=== PATIENT | male | born 1950 | race Caucasian/White ===

== ENCOUNTER 2016-08-12 14:28 | Emergency (ER) | payer OTHER ==
[~2016-08-12] VITALS: Ht 170.2 cm; Wt 95.3 kg
--- NOTE | 2016-08-12 14:50 | NUR ---
ARRIVAL: PT AMBULATED WELL TO RM 8. NAD. COLOR PINK. PLACED ON MONITOR AND TRIAGE DONE
--- NOTE | 2016-08-12 15:21 | NUR ---
RAD PT TO CT SCAN
--- NOTE | 2016-08-12 15:27 | NUR ---
RAD PT BACK FROM PT
--- NOTE | 2016-08-12 15:38 | ER.PDOC ---
General Chief Complaint: Eye Problems Stated Complaint: UNABLE TO SEE Time seen by MD: 15:00 Source: patient Exam Limitations: no limitations History of Present Illness Initial Comments Pt states that he had peripheral vision loss on the left eye, suddenly at 2 PM Timing/Duration: 1 hour Severity: mild Impairments: Visual Problems (Left hemianopia) Usually: orientedx3 Allergies: Coded Allergies: Sulfa (Sulfonamide Antibiotics) (Verified Allergy, Unknown, rash, 08/12/16) codeine (Verified Allergy, Unknown, enhances pain, 08/12/16) Past Medical History Medical History: cardiac problems, hypertension Social History Smoking: non-smoker Alcohol Use: none Drug Use: none Review of Systems Constitutional: see HPI Eyes: see HPI Ears, Nose, Mouth, Throat: see HPI Respiratory: see HPI Cardiovascular: see HPI Gastrointestinal: see HPI Genitourinary: see HPI Musculoskeletal: see HPI Skin: see HPI Psychiatric/Neurological: see HPI Endocrine: see HPI Hematologic/Lymphatic: see HPI Physical Exam General Appearance: alert, no distress HEENT: no apparent trauma, EOM's intact, no nystagmus, PERRL, ENT inspection nml, pharynx nml, airway intact, oral exam nml Neuro/Psych: oriented x3, nml speech/cognition, nml mood/affect Cranial Nerves: nml as tested Cerebellar: nml as tested Peripheral Exam: motor nml, sensation nml, reflexes nml Neck: supple, non-tender, no carotid bruit Respiratory: no resp distress, breath sounds nml CVS: reg rate & rhythm, heart sounds nml Abdomen: non-tender, no organomegaly, no distention Skin: color nml, no rash, warm/dry Extremities: non-tender, nml ROM, no pedal edema Results/Orders Results/Orders Laboratory Tests Test 08/12/16 15:38 08/12/16 15:47 Urine Collection Type Void Urine Color Yellow (YELLOW) Urine Appearance Clear (CLEAR) Urine Bilirubin NegativeMG/DL (NEGATIVE) Urine Ketones Negative (NEGATIVE) Urine Specific [place] 1.020 (1.005-1.035) Urine pH 5 (5.0-6.0) Urine Protein Negative (NEGATIVE) Urine Urobilinogen Normal (NEGATIVE) Urine Nitrate Negative (NEGATAIVE) Urine Leukocyte Esterase Negative (NEGATIVE) Urine Blood Negative (NEGATIVE) Urine Glucose Normal (NEGATIVE) White Blood Count 9.310^3/uL (4.5-11.0) Red Blood Count 4.7910^6/uL (4.50-5.90) Hemoglobin 14.2g/dL (13.9-16.3) Hematocrit 42.2% (37.0-53.0) Mean Corpuscular Volume 88.1fL (78-100) Mean Corpuscular Hemoglobin 29.6pg (26-34) Mean Corpuscular Hemoglobin Concent 33.6g/dL (33-37) Red Cell Distribution Width 13.4% (11.5-14.5) Platelet Count 54909^3/uL (150-400) Mean Platelet Volume 12.7fL (7.8-11.0) Neutrophils (%) (Auto) 60.6% (41.0-85.0) Lymphocytes (%) (Auto) 26.4% (24.0-44.0) Monocytes (%) (Auto) 9.9% (5.0-12.0) Neutrophils # (Auto) 5.610^3/uL (1.8-7.7) Lymphocytes # (Auto) 2.510^3/uL (1.0-4.8) Monocytes # (Auto) 0.910^3/uL (0.3-0.8) Absolute Immature Granulocyte (auto 0.0110^3 u/L (0-2) Eosinophils % 1.9% (0.0-5.0) Basophils % 1.1% (0.0-0.2) Basophils # 0.110^3/uL (0.0-0.1) Eosinophil Count 0.210^3/uL (0.0-0.2) Prothrombin Time 11.9SEC (9.8-11.9) Prothromb Time International Ratio 1.1 Activated Partial Thromboplast Time 25.5SEC (24.67-30.72) Sodium Level 140mmol/L (132-145) Potassium Level 4.1mmol/L (3.6-5.2) Chloride Level 107.0mmol/L (96-109) Carbon Dioxide Level 21.0mmol/L (20.0-32) Anion Gap 16.1 Blood Urea Nitrogen 18mg/dL (7-18) Creatinine 1.10mg/dL (0.59-1.40) Estimat Glomerular Filtration Rate 0 BUN/Creatinine Ratio 16.0 Glucose Level 106mg/dL (70-110) Calculated Osmolality 291.4 Calcium Level 8.5mg/dL (8.4-10.5) Total Bilirubin 0.7mg/dL (0.2-1.0) Aspartate Amino Transf (AST/SGOT) 25U/L (0-35) Alanine Aminotransferase (ALT/SGPT) 29U/L (12-78) Alkaline Phosphatase 44U/L (50-136) Total Creatine Kinase 118U/L (39-308) Creatine Kinase MB 1.2ng/mL (0.5-3.6) Troponin I 0.02ng/mL (0.00-0.05) Total Protein 6.3g/dL (6.4-8.2) Albumin 3.4g/dL (3.4-5.0) Globulin 2.9 Percent Immature Gran (Cell Imm) 0.10% (0.00-0.50) Departure Time of Disposition: 17:59 Disposition: 02 XFER [facility]M HOSP Impression: Primary Impression: TIA (transient ischemic attack) Additional Impression: Atrial fibrillation with rapid ventricular response Condition: Critical Referrals: PCP,UNKNOWN (PCP) PRIMARY CARE PROVIDER JOSE HORTA MD Aug 12, 2016 15:38
--- NOTE | 2016-08-12 15:51 | DIREP ---
PROCEDURE:CT HEAD OR BRAIN W/O CONTRAST COMPARISON:None. INDICATIONS:LOSS OF PERIPHERAL VISION TECHNIQUE:CT images were created without intravenous contrast. FINDINGS: VENTRICLES:The ventricles are normal in size and configuration. CEREBRUM:Normal cerebral morphology with appropriate harper white matter differentiation. CEREBELLUM:Negative. BRAINSTEM:Negative. BASAL CISTERNS:Negative. HEMORRHAGE:No MASS LESION:No ACUTE INFARCT:No SKULL:Normal. SINUSES:Normal. OTHER:None CONCLUSION:No acute intracranial abnormality. Dictated by: Eliezer Pino M.D. on 08/12/2016 at 03:48 PM
[2016-08-12 15:53] LABS: BASOPHIL # 0.1 10^3/uL (0.0-0.1); BASOPHIL % 1.1 % (0.0-0.2); EOSINOPHIL # 0.2 10^3/uL (0.0-0.2); EOSINOPHIL % 1.9 % (0.0-5.0); HEMATOCRIT 42.2 % (37.0-53.0); HEMOGLOBIN 14.2 g/dL (13.9-16.3); LYMPHOCYTES # 2.5 10^3/uL (1.0-4.8); LYMPHOCYTES % 26.4 % (24.0-44.0); MEAN CELL HGB 29.6 pg (26-34); MEAN CELL HGB CONCENTRATION 33.6 g/dL (33-37); MEAN CORP VOLUME 88.1 fL (78-100); MEAN PLATELET VOLUME 12.7 fL (7.8-11.0); MONOCYTES # 0.9 10^3/uL (0.3-0.8); MONOCYTES % 9.9 % (5.0-12.0); NEUTROPHIL # 5.6 10^3/uL (1.8-7.7); NEUTROPHILS % 60.6 % (41.0-85.0); RED CELL DISTRIBUTION WIDTH 13.4 % (11.5-14.5); WHITE BLOOD CELL 9.3 10^3/uL (4.5-11.0)
--- NOTE | 2016-08-12 16:23 | DIREP ---
PROCEDURE:CHEST 1 VIEW COMPARISON:None. INDICATIONS:TIA FINDINGS: LUNGS/PLEURA:Lordotic projection and low lung volumes. Mild diffuse interstitial thickening may represent chronic changes or interstitial pneumonia or edema. No focal infiltrate or sizable pleural effusion. CARDIAC:Prominent cardiac silhouette and pulmonary vascularity, likely accentuated by projection. MEDIASTINUM:Normal. BONES:Normal. OTHER:No additional findings. CONCLUSION:Nonspecific interstitial thickening. No previous study available for comparison. Dictated by: Terrie Elias MD on 08/12/2016 at 04:21 PM
[2016-08-12 16:39] LABS: CALCIUM 8.5 mg/dL (8.4-10.5)
[2016-08-12 16:44] LABS: BILIRUBIN,URINE NEGATIVE (NEGATIVE); UROBILINOGEN,URINE NORMAL (NEGATIVE)
[2016-08-12 17:08] LABS: APPEARANCE,URINE CLEAR (CLEAR); UA COLOR YELLOW (YELLOW)
--- NOTE | 2016-08-12 17:32 | NUR ---
MD DR HORTA ON THE PHONE WITH [facility]
--- NOTE | 2016-08-12 17:40 | NUR ---
DR ADAM HORTA ON PHONE WITH DR MEDINA
--- NOTE | 2016-08-12 17:45 | NUR ---
[facility] DR HORTA ON PHONE WITH [facility] TRANSFER LINE
--- NOTE | 2016-08-12 17:48 | NUR ---
[facility] ACCEPTED PT FOR TRANSFER
--- NOTE | 2016-08-12 18:05 | NUR ---
EMS SPOKE WITH [facility] FROM EMS, AMBULANCE CURRENTLY OUT ON TRANSPORT, WILL BE TO ED TO TRANSPORT PATIENT TO [facility] ER AFTER THEIR RETURN.
[2016-08-12] MEDS ORDERED: ASPIRIN PO STA (18:26)
[2016-08-12] MEDS ORDERED: ASPIRIN ONE (18:43)
--- NOTE | 2016-08-12 20:29 | NUR ---
[facility] HERE FOR TRANSPORT
--- NOTE | 2016-08-12 20:34 | NUR ---
REPORT REPORT GIVEN TO SHARRON HULL AT [facility] [place]
[2016-08-12 20:36] VITALS: BP 143/116
== END 2016-08-12 20:36 | disposition short-term general hospital (02) ==
LOC: ER 14:28
DX: G45.9 Transient cerebral ischemic attack, unspecified (principal); I48.91 Unspecified atrial fibrillation; I10 Essential (primary) hypertension; H53.47 Heteronymous bilateral field defects; Z88.2 Allergy status to sulfonamides; Z88.5 Allergy status to narcotic agent
CPT/HCPCS: 36415; 70450; 71010; 80053; 81002; 82550; 84484; 85025; 85610; 85730; 93005; 99285